=== PATIENT | male | born 1985 | race Caucasian/White ===

== ENCOUNTER 2020-01-18 21:44 | Emergency (ER) | payer SELFPAY ==
[~2020-01-18] VITALS: Ht 175.3 cm; Wt 97.5 kg
[2020-01-18 21:52] VITALS: BP 161/100
--- NOTE | 2020-01-18 21:56 | NUR ---
PT AMBULATED TO CHAIR C
[2020-01-18 22:05] VITALS: BP 161/100
--- NOTE | 2020-01-18 22:05 | NUR ---
PT ASSESSMENT COMPLETE. PT SEATED IN CHAIR. WILL CONTINUE TO MONITOR.
[2020-01-18] MEDS ORDERED: LIDOCAINE/EPI 1% 1:100000 20 ML VIAL INJ ONE (22:20)
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
--- NOTE | 2020-01-18 23:33 | NUR ---
Patient discharged with v/s stable. Written and verbal after care instructions given and explained. Patient verbalized understanding. Ambulatory with steady gait. All questions addressed prior to discharge. Advised to follow up with PMD.
== END 2020-01-18 23:33 | disposition home or self-care (01) ==
LOC: MED 21:44
DX: S01.112A Laceration without foreign body of left eyelid and periocular area, initial encounter (principal); Y04.0XXA Assault by unarmed brawl or fight, initial encounter; Y93.89 Activity, other specified; Y92.89 Other specified places as the place of occurrence of the external cause; Y99.8 Other external cause status
CPT/HCPCS: 12011; 99282; J2001